=== PATIENT | male | born 1960 | race Asian ===

== ENCOUNTER 2019-12-24 07:17 | Emergency (ER) | payer OTHER ==
[~2019-12-24] VITALS: Ht 172.7 cm; Wt 71.8 kg
[2019-12-24 07:20] VITALS: BP 138/78
== END 2019-12-24 08:30 | disposition home or self-care (01) ==
LOC: EMS 07:20
DX: Z20.828 Contact with and (suspected) exposure to other viral communicable diseases (principal)
CPT/HCPCS: 87635